=== PATIENT | female | born 1990 | race American Indian/Alaskan Native ===

== ENCOUNTER 2020-05-18 22:37 | Emergency (ER) | payer SELFPAY | END 2020-05-18 23:04 | disposition left against medical advice (07) | LOC: ED 22:37 | DX: R10.9 Unspecified abdominal pain (principal); Z53.21 Procedure and treatment not carried out due to patient leaving prior to being seen by health care provider ==

== ENCOUNTER 2022-01-03 00:13 | Emergency (ER) | payer MEDICAID ==
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
--- NOTE | 2022-01-03 01:33 | XRay Report ---
LEFT SHOULDER 2 VIEW(S) INDICATION / CLINICAL INFORMATION: left shoulder pain. COMPARISON: None available. FINDINGS: BONES / JOINT(S): No acute fracture or subluxation. No significant arthritis. SOFT TISSUES: No significant abnormality. ADDITIONAL FINDINGS: None. IMPRESSION: 1. No acute findings. Signer Name: Alan Hancock MD Signed: 01/03/2022 1:28 AM Workstation Name: [id number]
[2022-01-03] MEDS ORDERED: ACETAMINOPHEN 325 MG TAB PO ONE (01:40)
[2022-01-03] MEDS ORDERED: KETOROLAC 30 MG/1 ML INJ IV ONE (01:40)
[2022-01-03 03:03] VITALS: BP 115/70
== END 2022-01-03 03:03 | disposition home or self-care (01) ==
LOC: ED 00:13
DX: M25.512 Pain in left shoulder (principal); V89.2XXA Person injured in unspecified motor-vehicle accident, traffic, initial encounter; Y93.89 Activity, other specified; Y92.89 Other specified places as the place of occurrence of the external cause; Y99.8 Other external cause status
CPT/HCPCS: 73030; 96374; 99284; J1885